=== PATIENT | female | born 1950 | race Caucasian/White ===

== ENCOUNTER 2022-05-03 11:16 | Outpatient (CLI) | payer MEDICARE | END 2022-05-03 11:17 | disposition home or self-care (01) | LOC: BICMAMMO 11:16 | PROVIDERS: ATTEND Registered Nurse | DX: Z12.31 Encounter for screening mammogram for malignant neoplasm of breast (principal); Z80.3 Family history of malignant neoplasm of breast; Z91.89 Other specified personal risk factors, not elsewhere classified; Z85.828 Personal history of other malignant neoplasm of skin | CPT/HCPCS: 77063; 77067 ==

== ENCOUNTER 2022-11-02 12:51 | Outpatient (CLI) | payer MEDICARE | END 2022-11-02 12:52 | disposition home or self-care (01) | LOC: BICMRI 12:51 | PROVIDERS: ATTEND Orthopaedic Surgery | DX: M54.32 Sciatica, left side (principal); M54.31 Sciatica, right side; M47.816 Spondylosis without myelopathy or radiculopathy, lumbar region | CPT/HCPCS: 72148 ==

== ENCOUNTER 2023-07-11 13:36 | Outpatient (CLI) | payer MEDICARE | END 2023-07-11 13:37 | disposition home or self-care (01) | LOC: BICRAD 13:36 | PROVIDERS: ATTEND Podiatrist | DX: M79.671 Pain in right foot (principal); M77.31 Calcaneal spur, right foot ==